=== PATIENT | male | born 2000 | race Caucasian/White ===

== ENCOUNTER 2024-12-10 11:31 | Emergency (ER) | payer OTHER, SELFPAY ==
[2024-12-10 11:43] VITALS: BP 116/75
[2024-12-10] MEDS: ADRENALIN 0.3 MG IM (11:55)
[2024-12-10] MEDS: PEPCID 20 MG IV (11:55)
[2024-12-10] MEDS: BENADRYL 25 MG IV (11:55)
[2024-12-10 11:57] VITALS: BP 103/57
[2024-12-10] MEDS: SOLU-CORTEF 100 MG IV (11:57)
--- NOTE | 2024-12-10 11:58 | ED.GENMED ---
History of Present Illness
<Thor Hardwick PA-C - Last Filed: 12/10/24 15:54>
General
Chief Complaint: Allergic Reaction
Source: patient and family
Time Seen by Provider: 12/10/24 11:48
History of Present Illness
History of Present Illness:
24-year-old male with no known past medical history presents to the emergency department for evaluation after suspected allergic reaction shortly after he eating a protein bar that he has never had in the past. Notes a sensation of chest tightness,
feeling flushed, chest and back flushed, 1 episode of nonbloody nonbilious emesis. Patient attempted to take some Benadryl prior to arrival but shortly after taking the Benadryl vomited. States no history of similar. Only known allergy is
amoxicillin. Denies any pain presently. No other concerns.
Past History
<Thor Hardwick PA-C - Last Filed: 12/10/24 15:54>
Past History
ED Past Medical History: None
ED Past Surgical History: None
Social History
Tobacco: Non-smoker
Alcohol: None
Drug: None
Personal: Single
Living: with family
Review of Systems
<ABHAY Henriquez Last Filed: 12/10/24 15:54>
Review of Systems
All Other Systems: ROS reviewed and negative except as documented in HPI and ROS
Phy Exam
<ABHAY Henriquez Last Filed: 12/10/24 15:54>
Physical Exam
Physical Exam:
GENERAL: Alert , diffusely flushed, speaking full sentences, tolerating airway
HEAD: NCAT
EYE: conjunctiva clear
NECK: Supple
ENT: o/p clr, mmm. No oropharyngeal edema
CARDIAC: Borderline tachycardic rate and rhythm
LUNGS: Clear breath sounds bilaterally, no acute respiratory distress, no wheezes/rales/rhonchi
NEUROLOGICAL: Alert and oriented
SKIN: Warm and dry, skin intact. Generalized hives
MUSCULOSKELETAL: well perfused.
PSYCH: Normal and appropriate interaction.
Scores
<Thor Hardwick PA-C - Last Filed: 12/10/24 15:54>
Heart Failure Risk
Heart Failure Risk Score: Not Applicable
Heart Score for Chest Pain Patients
STEMI patient?: Not applicable
Withdrawal Assessment of Alcohol
Withdrawal Assessment Completed?: Not applicable
Course
<Thor Hardwick PA-C - Last Filed: 12/10/24 15:54>
Orders/Labs/Results
Orders:
Orders
12/10/24 11:33
EKG [Electrocardiogram (*1)] Urgent
Reason for Study: Chest Pain
12/10/24 11:51
Diphenhydramine [Benadryl] 50 mg .ROUTE .STK-MED ONE
12/10/24 11:52
Diphenhydramine [Benadryl] 25 mg IV NOW STA
EPINEPHrine PF [Adrenalin] 0.3 mg IM NOW STA
EPINEPHrine PF [Adrenalin] 1 mg .ROUTE .STK-MED ONE
Famotidine [Pepcid] 20 mg .ROUTE .STK-MED ONE
Famotidine [Pepcid] 20 mg IV NOW STA
Hydrocortisone Sod Succinate [Solu-Cortef] 100 mg IV NOW STA
MethylPREDNISolone PF [Solu-Medrol Pf] 125 mg .ROUTE .STK-MED ONE
12/10/24 12:01
Ondansetron Injectable [Zofran] 4 mg .ROUTE .STK-MED ONE
12/10/24 12:16
Ondansetron Injectable [Zofran] 4 mg IV NOW STA
Vital Signs
Initial and Last Documented VS:
Initial Vital Signs
Temp Pulse Resp BP Pulse Ox
97.5 F 91 16 116/75 97
12/10/24 11:43 12/10/24 11:43 12/10/24 11:43 12/10/24 11:43 12/10/24 11:43
Last Documented Vital Signs
Temp Pulse Resp BP Pulse Ox
97.5 F 68 11 104/57 96
12/10/24 11:43 12/10/24 15:30 12/10/24 15:30 12/10/24 15:00 12/10/24 15:30
<Hasmukh Worthy, DO - Last Filed: 12/10/24 12:12>
Orders/Labs/Results
Orders:
Orders
12/10/24 11:33
EKG [Electrocardiogram (*1)] Urgent
Reason for Study: Chest Pain
12/10/24 11:51
Diphenhydramine [Benadryl] 50 mg .ROUTE .STK-MED ONE
12/10/24 11:52
Diphenhydramine [Benadryl] 25 mg IV NOW STA
EPINEPHrine PF [Adrenalin] 0.3 mg IM NOW STA
EPINEPHrine PF [Adrenalin] 1 mg .ROUTE .STK-MED ONE
Famotidine [Pepcid] 20 mg .ROUTE .STK-MED ONE
Famotidine [Pepcid] 20 mg IV NOW STA
Hydrocortisone Sod Succinate [Solu-Cortef] 100 mg IV NOW STA
MethylPREDNISolone PF [Solu-Medrol Pf] 125 mg .ROUTE .STK-MED ONE
12/10/24 12:01
Ondansetron Injectable [Zofran] 4 mg .ROUTE .STK-MED ONE
12/10/24 12:16
Ondansetron Injectable [Zofran] 4 mg IV NOW STA
Vital Signs
Initial and Last Documented VS:
Initial Vital Signs
Temp Pulse Resp BP Pulse Ox
97.5 F 91 16 116/75 97
12/10/24 11:43 12/10/24 11:43 12/10/24 11:43 12/10/24 11:43 12/10/24 11:43
Last Documented Vital Signs
Temp Pulse Resp BP Pulse Ox
97.5 F 68 11 104/57 96
12/10/24 11:43 12/10/24 15:30 12/10/24 15:30 12/10/24 15:00 12/10/24 15:30
<Tohr Hardwick PA-C - Last Filed: 12/10/24 15:54>
MDM/Problems Addressed
Differential Diagnosis Includes:
- Anaphylaxis
- Contact dermatitis
- Seasonal allergy unlikely
- Less concern for infectious etiology
MDM/Problems Addressed:
24-year-old male presenting to the emergency department for evaluation after eating a protein bar and shortly thereafter developing sudden onset of chest tightness, flushing, rash and 1 episode of nonbloody nonbilious emesis. Attempted Benadryl but
vomited this up. On arrival here patient does appear to be having an anaphylactic reaction. Treatment with EpiPen, hydrocortisone, additional Benadryl and Pepcid. Shortly after my exam patient had another episode of nonbloody nonbilious emesis
and additional Zofran ordered.
<Thor Hardwick PA-C - Last Filed: 12/10/24 15:54>
*Pulse Oximetry
SaO2: 97
Oxygen Mode of Delivery: Room air
Patient hypoxic: no
*Rubber Press Operator Interpretation
Rate: tachycardiac
Heart Rate: 100
Rhythm: sinus
*Critical Care Note
Total Time (30-74mins, 75-104mins- exclusive of procedures): 30
comment:
Critical care statement: A total of 30 minutes of critical care time was provided for this patient. This includes management of unstable vital signs, evaluation of the patient at bedside, reviewing the patient's pertinent medical records, discussion
with consultants, review of old EKGs and review of pertinent medical records. This time with separate from time utilized to perform the aforementioned documented procedures
<Thor Hardwick PA-C - Last Filed: 12/10/24 15:54>
Comment
Comment:
On reevaluation approximately 20 minutes after medication patient is still mildly flushed however notes that the chest tightness and shortness of breath are resolved. Will have low threshold to repeat epinephrine as needed. Continue to observe.
Patient Management
Escalation/DeEscalation of care consider admission/obs:
Following continuous reevaluations and observation patient remains asymptomatic and feeling much improved. He no longer has any chest tightness or respiratory symptoms and the erythema/flushing is fully resolved. Patient stable for discharge home.
Will prescribe a steroid taper in addition to EpiPen. Patient can take Benadryl and Pepcid at home as needed. Family aware of return precautions to the ER.
ED Attending Note
<Thor Hardwick PA-C - Last Filed: 12/10/24 15:54>
-
Portions of this chart may have been created with voice recognition software.� Occasional wrong word or��sound alike� substitutions may have occurred due to the inherent limitations of voice recognition software.
<Hasmukh Worthy DO - Last Filed: 12/10/24 12:12>
ED Attending Note
Patient seen and examined by attending physician: Yes
I performed the substantive portion of visit, reviewed & personally made and approve the management plan that is documented in note by myself or SUELLEN.: Yes
ED Attending Note:
I have seen and evaluated the patient with a nzhq-pl-uvro encounter. I have spoken to the advance practicer provider and involved in the medical history, the physical exam, medical decision making.
Evaluation and management service: agree unless noted differently below.
Results interpretation: agree unless noted differently below.
Focused HPI: 24-year-old male presenting with allergic reaction soon after eating a protein bar. Per patient and mother, no prior food allergies noted
Physical exam: Erythema noted to face, chest and arms. Increased nasal congestion. Actively vomiting. No stridor. Posterior pharynx clear
Medical Decision Making: Patient treated as anaphylaxis. Patient given IM injection of epinephrine. Soon afterwards, this was followed by IV steroids, IV Pepcid and IV Benadryl. Will continue to monitor
Discharge Plan
Departure
Patient Disposition: Home (Routine Discharge)
Date of Disposition: 12/10/24
Time of Disposition: 15:28
Patient with high blood pressure during this ER visit?: No
Discharge Problem:
Anaphylaxis
Instructions: Anaphylaxis - Discharge instructions
Prescriptions:
New
methylprednisolone [Medrol ([facility])] 4 mg tablets,dose pack
4 mg PO DIRECTED Qty: 21 0RF
epinephrine [EpiPen] 0.3 mg/0.3 mL auto-injector
0.3 mg IM .STAT PRN (Reason: anaphylaxis) Qty: 1 0RF
Referrals:
Dory Lu MD [Consulting Staff, Electrical Subcontractor]
Celina Stover MD [Family Provider, Family Practice]
Interventions
Interventions:
*Risk Screen - Suicide Last Done: 12/10/24 12:06
*General Assessment Last Done: 12/10/24 12:06
*Neglect/Abuse Screening Last Done: 12/10/24 12:06
*ED- Fall Risk Assessment Last Done: 12/10/24 12:06
*ED COVID-19 Vaccine History Last Done: 12/10/24 12:06
*Nursing Disposition Last Done: 12/10/24 15:45
ED- Cardiac Assessment Last Done: 12/10/24 11:50
ED- Pulmonary Assessment Last Done: 12/10/24 11:50
ED-Skin Assessment Last Done: 12/10/24 12:11
Discharge Date and Time
Print Language: ARMENIAN
[2024-12-10 12:05] VITALS: BMI 26.4
[2024-12-10] MEDS: ZOFRAN 4 MG IV (12:05)
[2024-12-10 12:10] VITALS: BP 107/55
[2024-12-10 13:16] VITALS: BP 115/66
--- NOTE | 2024-12-10 13:22 | EDRN ---
Jayy GRIFFIN checked on need for EKG and said no need for an EKG on this pt.
--- NOTE | 2024-12-10 13:27 | EDRN ---
Pharmacy called to mix and send depakote IV.
[2024-12-10 14:00] VITALS: BP 115/63
[2024-12-10 15:00] VITALS: BP 104/57
== END 2024-12-10 15:45 | disposition home or self-care (01) ==
LOC: EMR 11:31
PROVIDERS: EMERGENCY PHYSICIAN Student in an Organized Health Care Education/Training Program; FAMILY PHYSICIAN Family Medicine
DX: T78.00XA Anaphylactic reaction due to unspecified food, initial encounter (principal); X58.XXXA Exposure to other specified factors, initial encounter
CPT/HCPCS: 99291; 96374; 96375 ×3; 96372

== ENCOUNTER 2024-12-19 23:51 | Emergency (ER) | payer SELFPAY ==
[2024-12-19 23:52] VITALS: BP 144/70
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
[2024-12-20 02:05] VITALS: BMI 26.3
[2024-12-20 04:11] VITALS: BP 140/70
== END 2024-12-20 04:12 | disposition home or self-care (01) ==
LOC: EMR 23:51
PROVIDERS: EMERGENCY PHYSICIAN Student in an Organized Health Care Education/Training Program; FAMILY PHYSICIAN Family Medicine
DX: S06.0X0A Concussion without loss of consciousness, initial encounter (principal); G44.309 Post-traumatic headache, unspecified, not intractable; M54.2 Cervicalgia; V89.2XXA Person injured in unspecified motor-vehicle accident, traffic, initial encounter
CPT/HCPCS: 99284; 70450; 72125